=== PATIENT | female | born 1960 | race Hispanic/Latino ===

== ENCOUNTER 2017-04-04 08:37 | Emergency (ER) | payer MEDICARE ==
[2017-04-04] MEDS ORDERED: TYLENOL PO ONE (08:54)
[2017-04-04] MEDS ORDERED: PERCOCET 5/325 PO ONE (10:44)
[2017-04-04] MEDS ORDERED: DECADRON IV ONE (10:44)
--- NOTE | 2017-04-04 10:44 | Emergency Department Report ---
ED Back Pain/Injury HPI - General Chief Complaint: Back Pain/Injury Stated Complaint: LOWER BACK PAIN Time Seen by Provider: 04/04/17 10:15 Source: patient, family Limitations: No Limitations - History of Present Illness Initial Comments: Patient reports that she has chronic back pain and she was bending over and twisted when she heard snap in her lower back. She says she is not from here and she has appointment schedule with [facility] in a couple weeks. She said it for a new patient visit because she is just recently moved to town. Patient states that she has not taken any medication at present her pain is 9 on the 10 and it is achy to the center of her lower back. She has a history of high cholesterol, hypertension, nicotine abuse, gout. Denies any nausea or vomiting. Denies any fever or chills. Denies any abdominal pain. She denies any shortness of breath or chest pain. She says she has chronic COPD and is usually short of breath but nothing more than what is usual. She said that this happened about 4:00 this morning when she was trying to color her hair. Denies any urinary burning, frequency or urgency. MD Complaint: back pain -: This morning Similar Symptoms Previously: Yes Place: home Radiation: none Severity: severe Severity scale (0 -10): 9 Quality: aching Consistency: constant Improves With: immobilization, supine Worsens With: movement, walking Context: turning/twisting, bending Associated Symptoms: denies: confusion, weakness, chest pain, numbness, difficulty walking, cough, difficulty urinating, diaphoresis, incontinence, fever/chills, constipation, headaches, abdominal pain, loss of appetite, malaise , nausea/vomiting, rash, seizure, shortness of breath, syncope Treatments Prior to Arrival: other (none) - Related Data Previous Rx's Medication Instructions Recorded Last Taken Type Cyclobenzaprine [Flexeril] 10 mg PO TID PRN #15 tablet 04/04/17 Unknown Rx traMADol [Ultram] 50 mg PO Q6HR PRN #20 tablet 04/04/17 Unknown Rx Allergies Allergy/AdvReac Type Severity Reaction Status Date / Time ketorolac [From Toradol] AdvReac Itching Verified 04/04/17 12:51 ED Review of Systems ROS: Stated complaint: LOWER BACK PAIN Other details as noted in HPI Comment: All other systems reviewed and negative Constitutional: no symptoms reported Eyes: denies: vision change Respiratory: no symptoms reported Cardiovascular: denies: chest pain, palpitations, dyspnea on exertion, edema, syncope, paroxysmal nocturnal dyspnea Gastrointestinal: denies: abdominal pain, nausea, vomiting, diarrhea, constipation, hematemesis Genitourinary: denies: urgency, dysuria, frequency, hematuria, discharge, other Musculoskeletal: back pain. denies: joint swelling, arthralgia, myalgia Skin: denies: rash Neurological: denies: headache, weakness, numbness, paresthesias, confusion, abnormal gait, vertigo ED Past Medical Hx - Past Medical History Previous Medical History?: Yes Hx COPD: Yes - Surgical History Past Surgical History?: Yes Additional Surgical History: BACK SURGERY ON DISK - Family History Family history: hypertension - Social History Smoking Status: Current Every Day Smoker Substance Use Type: None - Medications Home Medications: Home Medications Medication Instructions Recorded Confirmed Last Taken Type Cyclobenzaprine [Flexeril] 10 mg PO TID PRN #15 tablet 04/04/17 Unknown Rx traMADol [Ultram] 50 mg PO Q6HR PRN #20 tablet 04/04/17 Unknown Rx ED Physical Exam - General Limitations: No Limitations General appearance: alert, in no apparent distress - Head Head exam: Present: atraumatic, normocephalic, normal inspection - Eye Eye exam: Present: normal appearance, PERRL, EOMI Pupils: Present: normal accommodation - ENT ENT exam: Present: normal exam, normal orophraynx, mucous membranes moist, TM's normal bilaterally, normal external ear exam - Neck Neck exam: Present: normal inspection, full ROM, other (no C-spine tenderness). Absent: tenderness, meningismus, lymphadenopathy - Respiratory Respiratory exam: Present: normal lung sounds bilaterally. Absent: respiratory distress, chest wall tenderness - Cardiovascular Cardiovascular Exam: Present: regular rate, normal rhythm, normal heart sounds. Absent: systolic murmur, diastolic murmur - GI/Abdominal GI/Abdominal exam: Present: soft, normal bowel sounds. Absent: distended, tenderness, guarding, rebound, rigid, organomegaly, mass, bruit, pulsatile mass , hernia - Extremities Exam Extremities exam: Present: normal inspection, full ROM, normal capillary refill , calf tenderness, other (no clubbing, cyanosis or edema. +2 pulses to all extremities and no neurovascular compromise). Absent: tenderness, pedal edema, joint swelling - Back Exam Back exam: Present: normal inspection, full ROM, other (ambulates without any difficulties.). Absent: tenderness, CVA tenderness (R), CVA tenderness (L), muscle spasm, paraspinal tenderness, vertebral tenderness, rash noted - Neurological Exam Neurological exam: Present: alert, oriented X3, normal gait, reflexes normal. Absent: motor sensory deficit - Expanded Neurological Exam Expanded Neurological exam: Absent: innattentive, memory loss-remote event, memory loss- recent event, ataxia, receptive aphasia, expressive aphasia, total aphasia, tremor, protecting the airway Patient oriented to: Present: person, place, time Speech: Present: fluid speech Cranial nerves: EOM's Intact: Normal, Gag Reflex: Normal, Tongue Deviation: Normal, Nystagmus: Normal, Facial Sensation: Normal Cerebellar function: Romberg: Normal Upper motor neuron: Pronator Drift: Normal, Sensory Extinction: Normal Sensory exam: Upper Extremity Light Touch: Normal, Upper Extremity Temperature: Normal, UE 2 Point Discrimination: Normal, Lower Extremity Light Touch: Normal, Lower Extremity Temperature: Normal, LE 2 Point Discrimination: Normal DTR: bicep (R): 2+, bicep (L): 2+, tricep (R): 2+, tricep (L): 2+, knee (R): 2+ , knee (L): 2+, ankle (R): 2+, ankle (L): 2+ Best Eye Response ([place]): (4) open spontaneously Best Motor Response ([place]): (6) obeys commands Best Verbal Response ([place]): (5) oriented [place] Total: 15 - Psychiatric Psychiatric exam: Present: normal affect, normal mood - Skin Skin exam: Present: warm, dry, intact, normal color. Absent: rash ED Course Vital Signs 04/04/17 04/04/17 04/04/17 08:48 10:50 12:21 Temperature 97.5 F L Pulse Rate 66 Respiratory 18 16 Rate Blood Pressure 128/71 Blood Pressure 110/63 [Right] O2 Sat by Pulse 94 Oximetry - Reevaluation(s) Reevaluation #1: 04/04/17 10:00 She was given Tylenol 650 mg without any relief of pain. Reevaluation #2: 04/04/17 12:55 Patient given Decadron 10 mg IM and 5/325 mg 2 tablets when necessary emergency room and she voiced relief of her pain. ED Medical Decision Making - Radiology Data Radiology results: report reviewed CT scan of lumbar spine reveals no acute lumbar spine CT abnormalities though, advanced degenerative changes with severe spinal stenosis at L4 to 5. Paraspinal soft tissues. Non- aneurysmal abdominal aorta. Intact SI joint. - Medical Decision Making ED course: Patient here complaining of lower back pain which is chronic for her but she said she was dying her hair this morning and she bent and twisted and heard a pop in her lower back. She says she has chronic arthritis in her lower back but pain is worse since incident morning. Clinical findings for tender L- spine otherwise normal exam. CT scan of the lower back revealed no acute findings but she has advanced degenerative changes with severe spinal stenosis at L4 and 5. Patient was given Tylenol 650 mg by mouth in triage without any relief of pain. Patient was given Percocet 5/325 2 tablets emergency room along with Decadron 10 mg IM. She was relief of her pain down to [address] scan results with her and I told patient that she can follow up with orthopedic doctor who is Dr. Bragg and probably get a sooner appointment for management of chronic back pain. I told her to call his office this afternoon to schedule an appointment and to let them know that she was in the emergency room today. Patient discharged home in stable condition with her significant with prescription for Ultram Critical care attestation.: If time is entered above; I have spent that time in minutes in the direct care of this critically ill patient, excluding procedure time. ED Disposition Clinical Impression: Acute exacerbation of chronic low back pain, Degenerative lumbar spinal stenosis, Degenerative disc disease, lumbar Disposition: [id number] TO HOME OR SELFCARE Is pt being admited?: No Does the pt Need Aspirin: No Condition: Stable Instructions: Degenerative Disc Disease (ED), Lumbar Spinal Stenosis (ED), Chronic Back Pain (ED) Additional Instructions: Please rest for 72 hours he is rest for 72 hours Follow-up with Dr. Bragg orthopedic doctor in [address] or operate heavy machinery while taking Flexeril or Ultram as these medication can cause drowsiness Prescriptions: Cyclobenzaprine [Flexeril] 10 mg PO TID PRN #15 tablet PRN Reason: Muscle Spasm traMADol [Ultram] 50 mg PO Q6HR PRN #20 tablet PRN Reason: Pain Referrals: DUGLAS REARDON MD [Primary Care Provider] - 04/07/17 ÁNGEL BRAGG MD [Staff Physician] - 04/07/17 Forms: Work/School Release Form(ED)
--- NOTE | 2017-04-04 12:18 | Cat Scan Report ---
CT LUMBAR SPINE WITHOUT CONTRAST INDICATION: Back pain after injury. COMPARISON: None similar at this institution. FINDINGS: Noncontrast axial, sagittal and coronal CT reconstructions through the lumbar spine demonstrate severe L4-L5 disc narrowing with vacuum phenomenon and spurring with adjacent L4 and L5 vertebral body halves sclerosis. Large posterior disc/osteophyte complex and possible ligamentum flavum calcifications create severe spinal stenosis as on axial image 150, series 3, amongst others. Bilateral facet arthropathy and neural foraminal narrowing at this level also noted. No significant abnormality at remainder lumbar levels. Normal paraspinal soft tissues. Non-aneurysmal abdominal aorta. Intact SI joints with slight sclerosis along the iliac aspects. CONCLUSION: No acute lumbar spine CT abnormality, though advanced degenerative changes with severe spinal stenosis at L4-L5 noted, as described. Please correlate. Thank you for the opportunity to participate in this patient's care.
[2017-04-04 12:23] VITALS: BP 110/63
== END 2017-04-04 13:43 | disposition home or self-care (01) ==
LOC: ED 08:37
DX: M51.36 Other intervertebral disc degeneration, lumbar region (principal); M48.061 Spinal stenosis, lumbar region without neurogenic claudication; G89.29 Other chronic pain; J44.9 Chronic obstructive pulmonary disease, unspecified; F17.200 Nicotine dependence, unspecified, uncomplicated; Z88.8 Allergy status to other drugs, medicaments and biological substances
CPT/HCPCS: 72131; 96374; 99283; J1100